=== PATIENT | male | born 1965 | race American Indian/Alaskan Native ===

== ENCOUNTER 2017-05-30 11:10 | Emergency (ER) | payer BC ==
--- NOTE | 2017-05-30 12:18 | Cat Scan Report ---
CT HEAD WITHOUT CONTRAST INDICATION: Dizziness. COMPARISON: None similar at this institution. FINDINGS: Noncontrast head CT demonstrates normal ventricles and sulci without acute or recent infarct, hemorrhage, mass effect or midline shift. No abnormal extra-axial fluid collections. Posterior fossa structures and basilar cisterns appear within normal limits. Symmetric eye globes. Clear paranasal sinuses and mastoid air cells. Intact calvarium. Normal overlying scalp soft tissues. CONCLUSION: No acute intracranial CT abnormality, as described. Thank you for the opportunity to participate in this patient's care.
--- NOTE | 2017-05-30 12:42 | Emergency Department Report ---
HPI - General Chief Complaint: Dizziness Time Seen by Provider: 05/30/17 12:26 - HPI HPI: Room 37 The patient is a 51-year-old male presenting with a chief complaint of dizziness and chest pain. The patient states he awakened the morning of 2016 for chest pain and intermittent dizziness. Right chest pain has been constant waxing and waning. Ibuprofen has not helped. The patient states the dizziness was severe enough at the hold onto the wall while walking this morning and this prompted him to come to the ED. Patient states he had intermittent episodes of same for the past 2 years. The patient states he went to the emergency department once and had a negative workup. The patient states his primary physician referred him to a neurologist but he has never followed up. The patient states she's never had a stress test or cardiac catheterization Location: Head, right chest Duration: Intermittent since 05/28/2017 Quality: Pain Severity: Moderate Modifying factors: [see above] Context: [see above] Mode of transportation: Unknown ED Past Medical Hx - Past Medical History Hx Asthma: Yes - Surgical History Past Surgical History?: Yes Additional Surgical History: skin graft - Social History Smoking Status: Never Smoker Substance Use Type: Alcohol (rarely) - Medications Home Medications: Home Medications Medication Instructions Recorded Confirmed Last Taken Type ALBUTEROL Inhaler [Proair] 2 puff IH QID PRN 05/30/17 05/30/17 Unknown History ED Review of Systems ROS: Stated complaint: Dizziness Other details as noted in HPI Comment: All other systems reviewed and negative Constitutional: denies: chills, fever Eyes: denies: eye pain, eye discharge, vision change ENT: denies: ear pain, throat pain Respiratory: denies: cough, shortness of breath, wheezing Cardiovascular: chest pain. denies: palpitations Endocrine: no symptoms reported Gastrointestinal: denies: abdominal pain, nausea, diarrhea Genitourinary: denies: urgency, dysuria Musculoskeletal: denies: back pain, joint swelling, arthralgia Skin: denies: rash, lesions Neurological: vertigo. denies: headache Psychiatric: denies: anxiety, depression Hematological/Lymphatic: denies: easy bleeding, easy bruising Physical Exam - Physical Exam Vital Signs: Vital Signs 05/30/17 11:31 Temperature 97 F L Pulse Rate 74 Respiratory 16 Rate Blood Pressure 136/81 O2 Sat by Pulse 97 Oximetry Physical Exam: GENERAL: The patient is well-developed well-nourished male sitting in chair not appearing to be in acute distress. [] HEENT: Normocephalic. Atraumatic. Extraocular motions are intact. Patient has moist mucous membranes. NECK: Supple. Trachea midline CHEST/LUNGS: Clear to auscultation. There is no respiratory distress noted. HEART/CARDIOVASCULAR: Regular. There is no tachycardia. There is no gallop rub or murmur. ABDOMEN: Abdomen is soft, nontender. Patient has normal bowel sounds. There is no abdominal distention. SKIN: There is no rash. There is no edema. There is no diaphoresis. Evidence of previous skin graft on right forearm NEURO: The patient is awake, alert, and oriented. The patient is cooperative. The patient has no focal neurologic deficits. The patient has normal speech. Cranial nerves II through XII grossly intact, no drift. No dysmetria noted with [id number] bilaterally MUSCULOSKELETAL: There is no evidence of acute injury. ED Course Vital Signs 05/30/17 11:31 Temperature 97 F L Pulse Rate 74 Respiratory 16 Rate Blood Pressure 136/81 O2 Sat by Pulse 97 Oximetry ED Medical Decision Making - Lab Data Result diagrams: 05/30/17 12:45 05/30/17 12:45 Laboratory Tests 05/30/17 05/30/17 12:45 12:45 WBC 3.7 L RBC 4.90 Hgb 14.4 Hct 42.9 MCV 88 MCH 30 MCHC 34 RDW 13.0 L Plt Count 205 Add Manual Diff Complete Total Counted 100 Seg Neuts % (Manual) 60.0 Band Neutrophils % 0 Lymphocytes % (Manual) 33.0 Reactive Lymphs % (Man) 0 Monocytes % (Manual) 4.0 Eosinophils % (Manual) 3.0 Basophils % (Manual) 0 Metamyelocytes % 0 Myelocytes % 0 Promyelocytes % 0 Blast Cells % 0 Nucleated RBC % Not Reportable Seg Neutrophils # Man 2.2 Band Neutrophils # 0.0 Lymphocytes # (Manual) 1.2 Abs React Lymphs (Man) 0.0 Monocytes # (Manual) 0.1 Eosinophils # (Manual) 0.1 Basophils # (Manual) 0.0 Metamyelocytes # 0.0 Myelocytes # 0.0 Promyelocytes # 0.0 Blast Cells # 0.0 WBC Morphology Not Reportable Hypersegmented Neuts Not Reportable Hyposegmented Neuts Not Reportable Hypogranular Neuts Not Reportable Smudge Cells Not Reportable Toxic Granulation Not Reportable Toxic Vacuolation Not Reportable Dohle Bodies Not Reportable Pelger-Huet Anomaly Not Reportable Mikie Rods Not Reportable Platelet Estimate Appears normal Clumped Platelets Not Reportable Plt Clumps, EDTA Not Reportable Large Platelets Not Reportable Giant Platelets Not Reportable Platelet Satelliting Not Reportable Plt Morphology Comment Not Reportable RBC Morphology Not Reportable Dimorphic RBCs Not Reportable Polychromasia Not Reportable Hypochromasia Not Reportable Poikilocytosis Not Reportable Anisocytosis 1+ Microcytosis Not Reportable Macrocytosis Not Reportable Spherocytes Not Reportable Pappenheimer Bodies Not Reportable Sickle Cells Not Reportable Target Cells Not Reportable Tear Drop Cells Not Reportable Ovalocytes Not Reportable Helmet Cells Not Reportable [place]-Comfort Bodies Not Reportable Verplanck Rings Not Reportable [place] Cells Not Reportable Bite Cells Not Reportable Crenated Cell Not Reportable Elliptocytes Not Reportable Acanthocytes (Spur) Not Reportable Rouleaux Not Reportable Hemoglobin C Crystals Not Reportable Schistocytes Not Reportable Malaria parasites Not Reportable Urbano Bodies Not Reportable Hem Pathologist Commnt No Sodium 138 Potassium 4.7 Chloride 99.8 Carbon Dioxide 27 Anion Gap 16 BUN 13 Creatinine 0.9 Estimated GFR > 60 BUN/Creatinine Ratio 14 Glucose 84 Calcium 8.9 Troponin T < 0.010 - EKG Data -: EKG Interpreted by Ct EKG shows normal: sinus rhythm Rate: bradycardia (57 bpm) - EKG Data Interpretation: nonspecific ST-T wave michelle (meyer ST elevation possible pericarditis) - Radiology Data Radiology results: report reviewed (CT head, CT chest), image reviewed (CT head , CT chest) CT head (read by radiologist)-no acute intracranial CT abnormality CT chest (read by radiologist)-borderline cardiomegaly without CT evidence of pulmonary embolism. - Differential Diagnosis ACS, PE, pneumothorax, vertigo, ICH, Critical care attestation.: If time is entered above; I have spent that time in minutes in the direct care of this critically ill patient, excluding procedure time. ED Disposition Clinical Impression: Chest pain, Dizziness Disposition: 09 OP ADMIT IP TO THIS HOSP Is pt being admited?: Yes Does the pt Need Aspirin: Yes Condition: Fair Instructions: Chest Pain (ED) Referrals: PRIMARY CARE,MD [Primary Care Provider] - 3-5 Days Time of Disposition: 14:34 (Dr. Ruiz notified)
[2017-05-30 13:04] LABS: Hematocrit 42.9 % (35.5-45.6); Hemoglobin 14.4 gm/dl (11.8-15.2); Mean Corpuscular HGB Conc 34 % (32-34); Mean Corpuscular Hemoglobin 30 pg (28-32); Mean Corpuscular Volume 88 fl (84-94); Platelet Count 205 K/mm3 (140-440); White Blood Count 3.7 K/mm3 (4.5-11.0)
[2017-05-30 13:20] LABS: BUN/Creatinine Ratio 14; Blood Urea Nitrogen 13 mg/dL (9-20); Calcium 8.9 mg/dL (8.4-10.2); Carbon Dioxide 27 mmol/L (22-30); Chloride 99.8 mmol/L (98-107); Glucose 84 mg/dL (75-100); Sodium 138 mmol/L (137-145)
[2017-05-30 13:34] LABS: Anion Gap 16 mmol/L; Potassium 4.7 mmol/L (3.6-5.0)
[2017-05-30 13:35] LABS: Basophils % (Manual) 0 % (0.0-1.8); Blastocytes % (Manual) 0 %
[2017-05-30 13:36] LABS: Anisocytosis 1+; Diff Status Complete
--- NOTE | 2017-05-30 14:19 | Cat Scan Report ---
CTA CHEST INDICATION: Chest pain, dizziness, near syncope. COMPARISON: None similar. FINDINGS: Chest CTA performed following intravenous administration of 100 cc of Omnipaque 350. Rotational MIP's also obtained. Slight cardiomegaly. No effusions. No aortic aneurysm, dissection or suspicious pulmonary arterial filling defects. No size significant adenopathy. Normal airway. Unremarkable thyroid. Clear lungs. Mild air-filled distal esophageal prominence, not excluded for gastroesophageal reflux and/or hiatal hernia, amongst others. Images through included upper abdomen reveal no significant abnormality. Slight lower thoracic spine degenerative spurring. CONCLUSION: Borderline cardiomegaly without CT evidence of pulmonary embolism. Please correlate. Thank you for the opportunity to participate in this patient's care.
[2017-05-30] MEDS ORDERED: ASPIRIN PO ONE (14:35)
--- NOTE | 2017-05-30 15:14 | Discharge Summary ---
Providers - Providers Date of discharge: 05/30/17 Primary care physician: JOSE MARTINEZ MD Hospitalization Condition: Fair Disposition: DC-01 TO HOME OR SELFCARE Core Measure Documentation - Palliative Care Palliative Care/ Comfort Measures: Not Applicable - Core Measures Any of the following diagnoses?: none Exam - Constitutional Vitals: Temp Pulse Resp BP Pulse Ox 97 F L 74 16 136/81 97 05/30/17 11:31 05/30/17 11:31 05/30/17 11:31 05/30/17 11:31 05/30/17 11:31 General appearance: Present: no acute distress, well-nourished - EENT Eyes: Present: PERRL ENT: hearing intact, clear oral mucosa - Neck Neck: Present: supple, normal ROM - Respiratory Respiratory effort: normal Respiratory: bilateral: CTA - Cardiovascular Heart Sounds: Present: S1 & S2. Absent: rub, click - Extremities Extremities: pulses symmetrical, No edema Peripheral Pulses: within normal limits - Abdominal General gastrointestinal: Present: soft, non-tender, non-distended, normal bowel sounds Male genitourinary: Present: normal - Integumentary Integumentary: Present: clear, warm, dry - Musculoskeletal Musculoskeletal: gait normal, strength equal bilaterally - Psychiatric Psychiatric: appropriate mood/affect, intact judgment & insight - Neurologic Neurologic: CNII-XII intact, moves all extremities Plan Activity: no restrictions Diet: regular Follow up with: JOSE MARTINEZ MD [Primary Care Provider] - 3-5 Days SESAR VU MD [Staff Physician] - 7 Days KELLY BIRCH MD [Staff Physician] - 7 Days
[2017-05-30 15:34] VITALS: BP 149/72
== END 2017-05-30 15:35 | disposition home or self-care (01) ==
LOC: ED 11:10
DX: R07.9 Chest pain, unspecified (principal); R42 Dizziness and giddiness; J45.909 Unspecified asthma, uncomplicated
CPT/HCPCS: 36415; 70450; 71275; 80048; 84484; 85007; 85025; 93005; 93010; 99284; Q9967

== ENCOUNTER 2017-08-30 09:13 | Outpatient (CLI) | payer BC ==
--- NOTE | 2017-08-30 12:15 | Magnetic Resonance Report ---
MRI of the brain with and without contrast. History: Dizziness. Procedure: Routine brain protocol with and without contrast. Findings: The posterior fossa is normal. The CP angles appear normal. The ventricles are normal in size and contour. The emmanuel-white matter junction is normal. There is no restricted diffusion. There are no masses or extra-axial collections. After contrast administration, there are no abnormal areas of enhancement. The pituitary gland appears normal. The cerebellar tonsils are in normal position. There is a subcentimeter polyp or cyst in the anterior aspect of the left maxillary sinus. The remaining extracranial structures appear normal. Impression: Essentially normal study.
== END 2017-08-30 09:14 | disposition home or self-care (01) ==
LOC: EEG 09:13
PROVIDERS: ATTEND Psychiatry & Neurology Neurology
DX: R42 Dizziness and giddiness (principal)
CPT/HCPCS: 70553; 95819; A9577

== ENCOUNTER 2018-02-20 10:55 | Outpatient (CLI) | payer BC | END 2018-02-20 10:56 | disposition home or self-care (01) | LOC: VAS 10:55 | PROVIDERS: ATTEND Internal Medicine | DX: I25.10 Atherosclerotic heart disease of native coronary artery without angina pectoris (principal); J45.909 Unspecified asthma, uncomplicated | CPT/HCPCS: 93880 ==

== ENCOUNTER 2018-02-27 11:00 | Outpatient (CLI) | payer BC | END 2018-02-27 11:01 | disposition home or self-care (01) | LOC: SLR 11:00 | PROVIDERS: ATTEND Otolaryngology | DX: G47.33 Obstructive sleep apnea (adult) (pediatric) (principal); J45.909 Unspecified asthma, uncomplicated | CPT/HCPCS: 95810 ==

== ENCOUNTER → 2018-03-22 | Outpatient (CLI) | payer BC | END | disposition home or self-care (01) | LOC: SLR 11:00 | PROVIDERS: ATTEND Otolaryngology | DX: G47.33 Obstructive sleep apnea (adult) (pediatric) (principal); R06.83 Snoring; R40.0 Somnolence | CPT/HCPCS: 95811 ==

== ENCOUNTER 2019-05-23 08:48 | Outpatient (CLI) | payer BC ==
[2019-05-23 09:09] LABS: Hematocrit 44.1 % (35.5-45.6); Hemoglobin 14.9 gm/dl (11.8-15.2); Mean Corpuscular HGB Conc 34 % (32-34); Mean Corpuscular Volume 90 fl (84-94); Platelet Count 191 K/mm3 (140-440); Red Blood Count 4.89 M/mm3 (3.65-5.03); Red Cell Distribution Width 12.7 % (13.2-15.2)
[2019-05-23 09:20] LABS: Bilirubin,Urine NEG (Negative); Blood,Urine NEG (Negative); Color,Urine Yellow (Yellow); Mucus,Urine FEW /HPF; Protein,Urine <15 mg/dL mg/dL (Negative); Urobilinogen,Urine < 2.0 mg/dL (<2.0)
[2019-05-23 09:35] LABS: Alanine Aminotransferase 44 units/L (7-56); Albumin 4.8 g/dL (3.9-5); BUN/Creatinine Ratio 12; Blood Urea Nitrogen 13 mg/dL (9-20); Calcium 9.2 mg/dL (8.4-10.2); Hemolysis Index 5; LDL Cholesterol,Direct 56 mg/dL (50-130)
[2019-05-23 09:47] LABS: Chol/HDL Ratio 1.83 %; HDL Cholesterol 73 mg/dL (40-59)
[2019-05-23 10:30] LABS: Erythrocyte Sedimentation Rate 1 mm/Hr (0-20)
== END 2019-05-23 08:49 | disposition home or self-care (01) ==
LOC: LAB 08:48
PROVIDERS: ATTEND Internal Medicine
DX: Z00.00 Encounter for general adult medical examination without abnormal findings (principal); M25.511 Pain in right shoulder; M25.512 Pain in left shoulder; R78.71 Abnormal lead level in blood
CPT/HCPCS: 36415; 80053; 80061; 81001; 82550; 84153; 84443; 85027; 85652; 86038; 86140

== ENCOUNTER 2019-05-25 09:57 | Outpatient (CLI) | payer BC ==
--- NOTE | 2019-05-25 11:07 | Vascular Lab Report ---
BILATERAL CAROTID DOPPLER ULTRASOUND INDICATION : BILATERAL CAROTID ARTERY DISEASE TECHNIQUE: Grayscale and color Doppler imaging performed through the neck. COMPARISON: None FINDINGS: Right: There is no significant atherosclerotic disease. Peak systolic velocity in the CCA is 109 cm /s with end-diastolic velocity of 23 cm/s. Peak systolic velocity in the proximal ICA is 85 cm/s with end-diastolic velocity of 32 cm/s. ICA to CCA ratio is less than 2. There is antegrade flow in the ECA and the vertebral artery. Left: There is no significant atherosclerotic disease. Peak systolic velocity in the CCA is 108 cm/s with end-diastolic velocity of 28 cm/s. Peak systolic velocity in the proximal ICA is 120 cm/s with e nd-diastolic velocity of 37 cm/s. ICA to CCA ratio is less than 2. There is antegrade flow in the EC A and the vertebral artery. IMPRESSION: No hemodynamically significant stenosis by NASCET criteria. Signer Name: Pineda Espinoza Jr, MD Signed: 05/25/2019 11:02 AM Workstation Name: [id number]
== END 2019-05-25 09:58 | disposition home or self-care (01) ==
LOC: VAS 09:57
PROVIDERS: ATTEND Internal Medicine
DX: I65.23 Occlusion and stenosis of bilateral carotid arteries (principal); J45.909 Unspecified asthma, uncomplicated
CPT/HCPCS: 93880

== ENCOUNTER 2019-06-26 14:57 | Outpatient (CLI) | payer BC | END 2019-06-26 14:58 | disposition home or self-care (01) | LOC: LAB 14:57 | PROVIDERS: ATTEND Internal Medicine | DX: R78.71 Abnormal lead level in blood (principal); M25.512 Pain in left shoulder; M25.511 Pain in right shoulder | CPT/HCPCS: 36415; 83655 ==

== ENCOUNTER 2019-08-20 09:32 | Outpatient (CLI) | payer BC | END 2019-08-20 09:33 | disposition home or self-care (01) | LOC: ECHO 09:32 | PROVIDERS: ATTEND Specialist | DX: I08.8 Other rheumatic multiple valve diseases (principal); I51.7 Cardiomegaly | CPT/HCPCS: 93306 ==

== ENCOUNTER 2020-12-16 13:14 | Outpatient (CLI) | payer BC | END 2020-12-16 13:15 | disposition home or self-care (01) | LOC: PF 13:14 | PROVIDERS: ATTEND Specialist | DX: J45.909 Unspecified asthma, uncomplicated (principal) | CPT/HCPCS: 94010; 94726; 94729 ==

== ENCOUNTER 2021-01-16 10:52 | Outpatient (CLI) | payer BC ==
[2021-01-16 11:30] LABS: Basophils % (Auto) 0.7 % (0.0-1.8); Eosinophils # (Auto) 0.1 K/mm3 (0.0-0.4); Eosinophils % (Auto) 2.3 % (0.0-4.3); Hematocrit 41.8 % (35.5-45.6); Hemoglobin 14.4 gm/dl (11.8-15.2); Lymphocytes % (Auto) 34.5 % (13.4-35.0); Mean Corpuscular HGB Conc 35 % (32-34); Mean Corpuscular Volume 90 fl (84-94); Monocytes # (Auto) 0.2 K/mm3 (0.0-0.8); Monocytes % (Auto) 6.8 % (0.0-7.3); Platelet Count 170 K/mm3 (140-440); Red Blood Count 4.63 M/mm3 (3.65-5.03); Red Cell Distribution Width 12.9 % (13.2-15.2)
[2021-01-16 11:52] LABS: Bilirubin,Urine NEG (Negative); Blood,Urine NEG (Negative); Color,Urine Colorless (Yellow); Protein,Urine <15 mg/dL mg/dL (Negative); Urobilinogen,Urine < 2.0 mg/dL (<2.0); WBC,Urine < 1.0 /HPF (0.0-6.0)
[2021-01-16 11:55] LABS: Alanine Aminotransferase 25 units/L (7-56); BUN/Creatinine Ratio 11; Blood Urea Nitrogen 11 mg/dL (9-20); Calcium 9.8 mg/dL (8.4-10.2); Hemolysis Index 9
== END 2021-01-16 10:53 | disposition home or self-care (01) ==
LOC: LAB 10:52
PROVIDERS: ATTEND Specialist
DX: Z12.5 Encounter for screening for malignant neoplasm of prostate (principal); R04.2 Hemoptysis; R56.9 Unspecified convulsions; N39.0 Urinary tract infection, site not specified; R00.2 Palpitations
CPT/HCPCS: 36415; 80053; 81001; 82785; 84153; 85025